=== PATIENT | female | born 1985 | race Caucasian/White ===

== ENCOUNTER 2016-11-18 23:01 | Emergency (ER) | payer MEDICAID ==
[~2016-11-18] VITALS: Ht 157.5 cm; Wt 75.3 kg
[2016-11-18 23:01] VITALS: BP_SYST 130
--- NOTE | 2016-11-18 23:40 | NUR ---
Placed in room 04 . To gown for exam. Side rails up. Report given to CHESTER Pratt.
--- NOTE | 2016-11-18 23:47 | NUR ---
Patient to ER C/O productive cough with greenish sputum for the past month. Patient also C/O sore throat with sctratchy feeling. AAOx4, red sore throat, clear lungs, afebrile, no signs of acute distress.
--- NOTE | 2016-11-19 00:14 | NUR ---
ER MD Dinh at bedside for evaluation
--- NOTE | 2016-11-19 00:20 | NUR ---
RT at bedside for breathing treatment
[2016-11-19] MEDS ORDERED: IPRATROPIUM/ALBUTEROL SULFATE 3 ML AMPUL.NEB INH ONE (00:30)
[2016-11-19 01:56] VITALS: BP_SYST 125
--- NOTE | 2016-11-19 01:56 | NUR ---
Patient given written and verbal discharge instructions and verbalizes understanding. ER MD Dinh discussed with patient the results and treatment provided. Patient in stable condition. ID arm band removed. Rx of albuterol, prednisone, azithromycin given. Patient educated on pain management and to follow up with PMD. Pain Scale 0/10. Opportunity for questions provided and answered.
== END 2016-11-19 01:56 | disposition home or self-care (01) ==
LOC: SED 23:01
DX: J40 Bronchitis, not specified as acute or chronic (principal); Z88.0 Allergy status to penicillin
CPT/HCPCS: 36415; 71020-TC; 81025; 86710; 94640; 99285

== ENCOUNTER 2017-04-07 18:35 | Emergency (ER) | payer MEDICAID ==
[~2017-04-07] VITALS: Ht 157.5 cm; Wt 89.4 kg
[2017-04-07 19:15] VITALS: BP_SYST 124
--- NOTE | 2017-04-07 19:20 | NUR ---
PT TO WR, WAITING TO BE SEEN
--- NOTE | 2017-04-07 23:00 | NUR ---
CALLED IN, NO ANSWER
--- NOTE | 2017-04-07 23:00 | NUR ---
Patient left without being seen. No treatment provided for the patient. ER MD made aware
== END 2017-04-07 23:00 | disposition left against medical advice (07) ==
LOC: SED 18:35
DX: L29.9 Pruritus, unspecified (principal)

== ENCOUNTER 2017-04-08 08:17 | Emergency (ER) | payer MEDICAID ==
[~2017-04-08] VITALS: Ht 157.5 cm; Wt 89.4 kg
[2017-04-08 08:17] VITALS: BP_SYST 121
[2017-04-08 09:45] VITALS: BP_SYST 118
== END 2017-04-08 09:45 | disposition home or self-care (01) ==
LOC: SED 08:17
DX: L29.0 Pruritus ani (principal); Z88.0 Allergy status to penicillin
CPT/HCPCS: 99282